=== PATIENT | female | born 1950 | race Two or more races ===

== ENCOUNTER 2019-07-17 08:00 | Day surgery (SDC) | payer OTHER ==
[~2019-07-17 08:00] MED LIST: ADULT LOW DOSE81 M1 PO; CYMBALTA20 MG; FORTAMET500 MG PO; GABAPENTIN400 MG PO; GLIPIZIDE XL10 MG PO; HUMULIN N100 UNIT/2; LOTREL 10-20 M1 EACH PO
== END 2019-07-17 16:50 | disposition home or self-care (01) ==
LOC: CIR.AMB 08:00
PROVIDERS: ATTEND Orthopaedic Surgery Hand Surgery
DX: G56.02 Carpal tunnel syndrome, left upper limb (principal)